=== PATIENT | female | born 1935 | race Native Hawaiian/Other Pacific Islander ===

== ENCOUNTER 2021-09-22 11:15 | Inpatient (IN) | payer MEDICAID ==
[~2021-09-22] VITALS: Ht 160 cm; Wt 75.3 kg
--- NOTE | 2021-09-22 11:35 | NUR ---
Patient came in ER via ambulance, alert and oriented x4 with complaints of cough, shortness of breath and palpitations 3 days ago. No episodes nausea/vomiting , denies chest pain, not in distress. Patient with history of hypertension, DM, hyperthyroidism. Son in law at bedside.
--- NOTE | 2021-09-22 11:41 | NUR ---
PT IS IN ROOM #1B. DR CHIN EVALUATED THE PT.
[2021-09-22] MEDS ORDERED: MECL-225 PO (11:45)
[2021-09-22] MEDS ORDERED: AMLO5TAB4 PO (11:45)
[2021-09-22] MEDS ORDERED: SITA100T PO (11:45)
[2021-09-22] MEDS ORDERED: METH5TAB6 PO (11:45)
[2021-09-22] MEDS ORDERED: FAMO20TA8 PO (11:45)
[2021-09-22] MEDS ORDERED: VITA1TAB57 PO (11:45)
[2021-09-22] MEDS ORDERED: ATEN25TA PO (11:45)
[2021-09-22] MEDS ORDERED: LOSA50TA39 PO (11:45)
[2021-09-22] MEDS ORDERED: ALLO100T56 PO (11:45)
[2021-09-22] MEDS ORDERED: DICY10CA13 PO (11:45)
--- NOTE | 2021-09-22 11:45 | NUR ---
COVID antigen specimen sent to lab.
[2021-09-22 11:50] LABS: HEMATOCRIT 34.7 % (31.2-41.9); MEAN CORPUSCULAR HEMOGLOBIN 30.5 uug (24.7-32.8); MEAN CORPUSCULAR VOLUME 90.6 fL (75.5-95.3); PLATELET COUNT (AUTO) 328 K/uL (179-408)
[2021-09-22 11:57] LABS: CARBON DIOXIDE 27 mmol/L (21-32); CHLORIDE 95 mmol/L (98-107); GLUCOSE 188 mg/dL (74-106); POTASSIUM 3.8 mmol/L (3.5-5.1); UREA NITROGEN, BLOOD 26 mg/dL (7-18)
[2021-09-22 12:10] LABS: ALANINE AMINOTRANSFERASE 70 U/L (14-59); ALKALINE PHOSPHATASE 94 U/L (50-136); ASPARTATE AMINOTRANSFERASE 47 U/L (15-37); BILIRUBIN,DIRECT 0.3 mg/dL (0.0-0.2); BILIRUBIN,TOTAL 0.7 mg/dL (0.2-1.0); TOTAL PROTEIN, SERUM 7.9 g/dL (6.4-8.2)
[2021-09-22 12:24] LABS: MAGNESIUM 1.8 mg/dL (1.8-2.4); PHOSPHOROUS 3.9 mg/dL (2.5-4.9)
[2021-09-22] MEDS ORDERED: ENOXAPARIN SODIUM 80 MG/0.8 ML DISP.SYRIN SQ ONE ×2 (12:25→12:30)
[2021-09-22] MEDS ORDERED: ASPIRIN 325 MG TABLET ONE (12:26)
[2021-09-22] MEDS ORDERED: FUROSEMIDE 40 MG/4 ML VIAL ONE (12:26)
[2021-09-22] MEDS ORDERED: ASPIRIN 325 MG TABLET PO ONE (12:30)
[2021-09-22] MEDS ORDERED: FUROSEMIDE 40 MG/4 ML VIAL IV ONE (12:30)
[2021-09-22 12:50] LABS: THYROID STIMULATING HORMONE 2.477 mIU/mL (0.358-3.740)
[2021-09-22] MEDS ORDERED: MECLIZINE HCL 12.5 MG TABLET PO PRN (14:30)
[2021-09-22] MEDS ORDERED: ACETAMINOPHEN 325 MG TABLET PO PRN (14:30)
[2021-09-22] MEDS ORDERED: ONDANSETRON 4 MG/2 ML VIAL IV PRN (14:30)
[2021-09-22] MEDS ORDERED: DICYCLOMINE HCL 10 MG CAPSULE PO PRN (14:30)
[2021-09-22] MEDS ORDERED: REMEDY ESSENTIAL ZINC PASTE 113 GM TP PRN (14:30)
[2021-09-22] MEDS ORDERED: FAMOTIDINE 20 MG TABLET PO PRN (14:30)
[2021-09-22] MEDS ORDERED: MAGNESIUM HYDROXIDE 30 ML LIQUID UDC PO PRN (14:30)
[2021-09-22 14:33] LABS: *AMPHETAMINE, URINE NEGATIVE (NEGATIVE); *CANNABINOID, URINE NEGATIVE (NEGATIVE); *COCCAINE, URINE NEGATIVE (NEGATIVE); *OPIATE, URINE NEGATIVE (NEGATIVE); *PHENCYCLIDINE SCREEN,URINE NEGATIVE (NEGATIVE)
[2021-09-22 16:40] VITALS: BP 169/88
--- NOTE | 2021-09-22 16:44 | NUR ---
PT WAS TRANSFERED TO TELEMETRY ROOM #308. 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
[2021-09-22] MEDS ORDERED: ATENOLOL 25 MG TABLET PO SCH (17:12)
[2021-09-22] MEDS: METHIMAZOLE 5 MG TABLET PO SCH (17:37)
[2021-09-22] MEDS: LOSARTAN POTASSIUM 50 MG TABLET PO SCH (17:39)
[2021-09-22] MEDS: AMLODIPINE 5 MG TABLET PO SCH (17:39)
[2021-09-22 20:00] VITALS: BP 153/78
[2021-09-22] MEDS ORDERED: ENOXAPARIN SODIUM 60 MG/0.6 ML DISP.SYRIN SQ SCH (21:00)
[2021-09-22] MEDS ORDERED: FUROSEMIDE 40 MG/4 ML VIAL IV STA (21:46)
[2021-09-22 22:11] LABS: ABG BASE EXCESS -1.3 mmol/L; ABG PCO2 37.3 mmHg (35.0-45.0); ABG PH 7.408 (7.350-7.450); ABG PO2 76.6 mmHg (75.0-100.0); ABG SITE LEFT RADIAL; ABG TOTAL HEMOGLOBIN 12.2 G/dL (12.0-16.0); COHb 0.6 % (0.5-1.5); MetHb 0.3 % (0.0-1.5); O2Hb 94.3 % (94.0-97.0); VENT MODE Nasal Cannula
--- NOTE | 2021-09-22 22:11 | NUR ---
Patient AALOx4.Complaints that she couldn't breath.O2 at 2LPM via NC,saturating at 92-94%.BP 188/97 NSR on Tele HR of 86.Received Troponin result went up to 954 from 938 . Notified with new order received .Lasix 40 mg IV stat and ABG stat.Titrate oxygen to sat 94 %.Order noted and carried out.Will continue to monitor.
--- NOTE | 2021-09-22 22:38 | NUR ---
Relayed ABG result to . NNO at this time.
[2021-09-23] VITALS: BP 163/83
[2021-09-23 00:35] VITALS: BP 150/81
[2021-09-23 04:00] VITALS: BP 140/72
--- NOTE | 2021-09-23 06:19 | NUR ---
Patient slept intermittently uses bathroom frequently.Voided well.No acute distress noted. Patient stated she feels better.VSS.All needs anticipated and met accordingly . Will endorse to oncoming shift.
[2021-09-23 06:27] LABS: HEMATOCRIT 32.4 % (31.2-41.9); MEAN CORPUSCULAR VOLUME 90.7 fL (75.5-95.3); PLATELET COUNT (AUTO) 296 K/uL (179-408)
[2021-09-23 06:48] LABS: BILIRUBIN,TOTAL 0.7 mg/dL (0.2-1.0); CREATININE 0.8 mg/dL (0.6-1.3); MAGNESIUM 1.8 mg/dL (1.8-2.4); PHOSPHOROUS 4.3 mg/dL (2.5-4.9); POTASSIUM 3.4 mmol/L (3.5-5.1); TOTAL PROTEIN, SERUM 7.3 g/dL (6.4-8.2)
[2021-09-23] MEDS ORDERED: POTASSIUM CHLORIDE 20 MEQ POWDER PACKET PO ONE (08:00)
[2021-09-23] MEDS: POTASSIUM CHLORIDE 50 ML IV SCH ×2 (08:33→20:01)
[2021-09-23] MEDS ORDERED: ATENOLOL 25 MG TABLET PO SCH (09:00)
[2021-09-23] MEDS ORDERED: LOSARTAN POTASSIUM 50 MG TABLET PO SCH (09:00)
[2021-09-23] MEDS ORDERED: FUROSEMIDE 40 MG/4 ML VIAL IV SCH (09:00)
[2021-09-23] MEDS ORDERED: AMLODIPINE 5 MG TABLET PO SCH (09:00)
[2021-09-23] MEDS ORDERED: FUROSEMIDE 40 MG/4 ML VIAL IV ONE (09:00)
[2021-09-23] MEDS: ALLOPURINOL 100 MG TABLET PO SCH (09:45)
[2021-09-23] MEDS: LOSARTAN POTASSIUM 50 MG TABLET PO SCH (09:45)
[2021-09-23] MEDS: AMLODIPINE 5 MG TABLET PO SCH (09:45)
[2021-09-23] MEDS: ASPIRIN 81 MG TAB.CHEW PO SCH (09:46)
[2021-09-23] MEDS: METOPROLOL SUCCINATE XL 50 MG TAB.SR.24H PO SCH (09:46)
[2021-09-23 11:10] VITALS: BP 124/58
[2021-09-23] MEDS: ENOXAPARIN SODIUM 30 MG/0.3 ML DISP.SYRIN SQ SCH (11:13)
[2021-09-23] MEDS: METHIMAZOLE 5 MG TABLET PO SCH ×2 (11:19→16:51)
--- NOTE | 2021-09-23 12:30 | NUR ---
Patient taken for imaging to [facility].
--- NOTE | 2021-09-23 14:00 | NUR ---
Per pharmacist, Gerardo communicated that it was OK to hold off on the Potassium IVPB and lasix IV.
--- NOTE | 2021-09-23 15:16 | NUR ---
Patient back from CT scan
[2021-09-23 16:34] VITALS: BP 119/49
[2021-09-23] MEDS ORDERED: ATOR20TA PO (18:47)
[2021-09-23 20:30] VITALS: BP 114/57
[2021-09-23] MEDS ORDERED: ATORVASTATIN 20 MG TABLET PO SCH (21:00)
[2021-09-23] MEDS ORDERED: ATORVASTATIN 40 MG TABLET PO SCH (21:00)
--- NOTE | 2021-09-23 21:02 | NUR ---
Patient in bed Cymro speaking. Denies chest pain or discomfort at this time.O2 at @2 LPM via NC saturating at 95%.Midline on Left upper arm patent and intact. Per give both Potassium IVPB and lasix IV. Adm medication as ordered .No a/r noted. Patient ambulates to bathroom with the use of walker. Call light with in reach. will continue to monitor.
[2021-09-24 00:01] VITALS: BP 128/48
[2021-09-24 04:00] VITALS: BP 117/46
[2021-09-24 08:00] VITALS: BP 156/70
--- NOTE | 2021-09-24 08:25 | NUR ---
Dr. Santizo at bedside assessing patient. Order to titrate off the oxygen. Keep patient above 94% on RA
[2021-09-24] MEDS ORDERED: ASPI81TA31 PO (08:40)
[2021-09-24] MEDS ORDERED: METO-357 PO (08:40)
[2021-09-24] MEDS: ALLOPURINOL 100 MG TABLET PO SCH (08:56)
[2021-09-24] MEDS: ASPIRIN 81 MG TAB.CHEW PO SCH (08:56)
[2021-09-24] MEDS: LOSARTAN POTASSIUM 50 MG TABLET PO SCH (08:56)
[2021-09-24] MEDS: AMLODIPINE 5 MG TABLET PO SCH (08:56)
[2021-09-24] MEDS: METOPROLOL SUCCINATE XL 50 MG TAB.SR.24H PO SCH (08:57)
[2021-09-24] MEDS: ENOXAPARIN SODIUM 30 MG/0.3 ML DISP.SYRIN SQ SCH (08:58)
[2021-09-24] MEDS: METHIMAZOLE 5 MG TABLET PO SCH ×2 (09:57→13:17)
[2021-09-24 11:10] VITALS: BP 103/41
--- NOTE | 2021-09-24 15:02 | NUR ---
Patient discharged in stable condition per MD. Oxygen levels remained above 94% on room air. No respiratory distress at this time. Denies chest pain. IV line removed. Patient took all belongings home. Family member and patient verbalize understanding of discharge instructions. Patient taken down via wheel chair to family member's car.
== END 2021-09-24 15:10 | disposition home or self-care (01) | DRG 194 ==
LOC: ER 11:15 → TRANSITION 14:50 → TELE3 16:10
PROVIDERS: ADMIT Internal Medicine; ATTEND Internal Medicine
DX: I11.0 Hypertensive heart disease with heart failure (principal); J96.01 Acute respiratory failure with hypoxia; I21.A1 Myocardial infarction type 2; I50.33 Acute on chronic diastolic (congestive) heart failure; I27.20 Pulmonary hypertension, unspecified; Z20.822 Contact with and (suspected) exposure to COVID-19; Z79.84 Long term (current) use of oral hypoglycemic drugs; Z79.899 Other long term (current) drug therapy; E11.9 Type 2 diabetes mellitus without complications; I48.0 Paroxysmal atrial fibrillation; I69.398 Other sequelae of cerebral infarction; H54.61 Unqualified visual loss, right eye, normal vision left eye; Z79.82 Long term (current) use of aspirin; E78.5 Hyperlipidemia, unspecified; E05.90 Thyrotoxicosis, unspecified without thyrotoxic crisis or storm
CPT/HCPCS: 36415; 36600; 71045; 83605; 83735; 84100; 84443; 84484; 85025; 93005; 93307; A4663; G0378; J1650; J1940; J3480; J8499